=== PATIENT | male | born 2000 | race Caucasian/White ===

== ENCOUNTER 2021-09-07 12:08 | Emergency (ER) | payer SELFPAY ==
[~2021-09-07] VITALS: Ht 172.7 cm; Wt 91.0 kg
[2021-09-07] MEDS ORDERED: IBUPROFEN 600MG TABLET PO STA (12:32)
[2021-09-07 12:37] VITALS: BP 141/90
== END 2021-09-07 14:33 | disposition left against medical advice (07) ==
LOC: ER 12:42
DX: M79.10 Myalgia, unspecified site (principal); F15.10 Other stimulant abuse, uncomplicated; F17.210 Nicotine dependence, cigarettes, uncomplicated; Z20.822 Contact with and (suspected) exposure to COVID-19
CPT/HCPCS: 87426; 99283; C9803